=== PATIENT | male | born 1995 | race Caucasian/White ===

== ENCOUNTER 2018-11-18 10:10 | Emergency (ER) | payer OTHER ==
[~2018-11-18] VITALS: Ht 167.6 cm; Wt 74.4 kg
[2018-11-18 10:17] VITALS: BP 117/60; Ht 167.6 cm; Wt 74.4 kg
== END 2018-11-18 10:37 | disposition home or self-care (01) ==
LOC: ED 10:10
DX: J06.9 Acute upper respiratory infection, unspecified (principal)